=== PATIENT | female | born 1935 | race Caucasian/White ===

== ENCOUNTER 2024-11-19 06:07 | Emergency (ER) | payer MEDICARE, OTHER ==
[~2024-11-19] VITALS: Ht 170.2 cm; Wt 59.1 kg
[2024-11-19 06:57] LABS: CHLORIDE 100 mmol/L (98-107); POTASSIUM 3.9 mmol/L (3.5-5.1); SODIUM SERUM 135 mmol/L (136-145)
[2024-11-19 06:58] LABS: BASOPHILS % (AUTO) 0.7 % (0.0-2.0); EOSINOPHILS % (AUTO) 1.9 % (1.0-6.0); HEMATOCRIT 36.3 % (36-46); HEMOGLOBIN 12.3 g/dL (12.0-16.0); LYMPHOCYTES # (AUTO) 1.3 K/uL (1.0-4.8); LYMPHOCYTES % (AUTO) 12.9 % (22.0-44.0); MEAN CORPUSCULAR HEMOGLOBIN 30.6 pg (26.0-34.0); MEAN CORPUSCULAR HGB CONC 33.9 G/dL (31.0-37.0); MEAN CORPUSCULAR VOLUME 90 fL (80-100); MONOCYTES % (AUTO) 9.5 % (2.0-9.0); NEUTROPHILS # (AUTO) 7.6 K/uL (1.8-7.7); PLATELET COUNT (AUTO) 255 K/uL (150-450); RED BLOOD CELL COUNT(AUTO) 4.02 MIL/uL (4.00-5.20); RED CELL DISTRIBUTION WIDTH 14.6 % (11.5-14.5); WHITE BLOOD COUNT (AUTO) 10.2 K/uL (4.5-11.0)
[2024-11-19 07:02] LABS: ANION GAP 7 mmol/L (8-16); CALCIUM, TOTAL 9.3 mg/dL (8.8-10.5); CARBON DIOXIDE 28 mmol/L (22-29); CREATININE 0.85 mg/dL (0.60-1.30); GLOMERULAR FILTR. RATE CALC > 60 mL/min (>60); GLUCOSE,RANDOM 91 mg/dL (70-110); UREA NITROGEN, BLOOD 19 mg/dL (7-18)
[2024-11-19 07:10] LABS: ALCOHOL, BLOOD (SERUM) < 3 mg/dL (0-10)
[2024-11-19 07:19] VITALS: BP 134/76; PULSE 64; RESP 18; TEMP 97.7; O2SAT 94
[2024-11-19] MEDS ORDERED: CLON0.1T2 PO (07:39)
[2024-11-19] MEDS ORDERED: AMMO225L14 TP (07:39)
[2024-11-19] MEDS ORDERED: BISA-151 PO (07:39)
[2024-11-19] MEDS ORDERED: AMLO5TAB66 PO (07:39)
[2024-11-19 08:09] LABS: COVID AG,FIA SOURCE NASAL SWAB
[2024-11-19 08:16] LABS: APPEARANCE,URINE CLEAR (CLEAR); BILIRUBIN,URINE NEGATIVE (NEGATIVE); COLOR,URINE COLORLESS (YELLOW); GLUCOSE, URINE (UA) NEGATIVE (NEGATIVE); KETONES,URINE NEGATIVE (NEGATIVE); LEUKOCYTE ESTERASE ,URINE SMALL (NEGATIVE); NITRATE,URINE NEGATIVE (NEGATIVE); OCCULT BLOOD,URINE TRACE (NEGATIVE); PH,URINE 6.5 (5.0-8.0); PH,URINE DRUG SCREEN 6.5 (5.0-8.0); PROTEIN,URINE NEGATIVE (NEGATIVE); SPECIFIC GRAVITIY, URINE 1.006 (1.003-1.030); UROBILINOGEN,URINE <=1.0 mg/dL (<=1.0)
[2024-11-19 08:22] LABS: AMPHET/METH SCREEN,URINE NEGATIVE (NEGATIVE); BARBITURATE SCREEN, URINE NEGATIVE (NEGATIVE); BENZODIAZEPINES SCREEN,URINE NEGATIVE (NEGATIVE); CANNABINOID SCREEN,URINE NEGATIVE (NEGATIVE); COCAINE SCREEN,URINE NEGATIVE (NEGATIVE); METHADONE SCREEN, URINE NEGATIVE (NEGATIVE); OPIATE SCREEN,URINE NEGATIVE (NEGATIVE); PHENCYCLIDINE SCREEN,URINE NEGATIVE (NEGATIVE)
[2024-11-19 08:23] LABS: ALCOHOL, URINE DRUG SCREEN NEGATIVE (NEGATIVE)
[2024-11-19 08:27] LABS: SARS-COV2 (COVID) ANTIGEN,FIA Negative (Negative)
[2024-11-19 08:38] LABS: BACTERIA,URINE None Seen /HPF (None Seen); RBC,URINE 0-2 /HPF (0-2)
== END 2024-11-19 12:00 ==
LOC: EMS 06:10
DX: R45.1 Restlessness and agitation (principal); Z20.822 Contact with and (suspected) exposure to COVID-19
CPT/HCPCS: 99283; 87426; 80048; 81001; 85025; 36415; 80307; G0480

== ENCOUNTER 2024-11-20 16:02 | Inpatient (IN) | payer MEDICARE, OTHER ==
[~2024-11-20] VITALS: Ht 160 cm; Wt 58.5 kg
[~2024-11-20 16:02] MED LIST: AMLO5TAB66 PO; AMMO225L14 TP; BISA-151 PO; CLON0.1T2 PO
[2024-11-20 18:00] LABS: COVID AG,FIA SOURCE NPH
[2024-11-20 18:20] LABS: SARS-COV2 (COVID) ANTIGEN,FIA Negative (Negative)
[2024-11-20 18:27] LABS: BASOPHILS % (AUTO) 0.8 % (0.0-2.0); EOSINOPHILS % (AUTO) 1.3 % (1.0-6.0); HEMATOCRIT 35.3 % (36-46); HEMOGLOBIN 11.7 g/dL (12.0-16.0); LYMPHOCYTES # (AUTO) 0.6 K/uL (1.0-4.8); LYMPHOCYTES % (AUTO) 7.9 % (22.0-44.0); MEAN CORPUSCULAR HEMOGLOBIN 30.5 pg (26.0-34.0); MEAN CORPUSCULAR HGB CONC 33.3 G/dL (31.0-37.0); MEAN CORPUSCULAR VOLUME 92 fL (80-100); MONOCYTES # (AUTO) 0.9 K/uL (0.1-1.0); MONOCYTES % (AUTO) 11.8 % (2.0-9.0); NEUTROPHILS # (AUTO) 5.8 K/uL (1.8-7.7); NEUTROPHILS % (AUTO) 78.2 % (40.0-70.0); PLATELET COUNT (AUTO) 232 K/uL (150-450); RED BLOOD CELL COUNT(AUTO) 3.85 MIL/uL (4.00-5.20); RED CELL DISTRIBUTION WIDTH 14.5 % (11.5-14.5); WHITE BLOOD COUNT (AUTO) 7.4 K/uL (4.5-11.0)
[2024-11-20 18:36] LABS: ANION GAP 8 mmol/L (8-16); CALCIUM, TOTAL 8.8 mg/dL (8.8-10.5); CARBON DIOXIDE 27 mmol/L (22-29); CHLORIDE 101 mmol/L (98-107); CREATININE 0.93 mg/dL (0.60-1.30); GLOMERULAR FILTR. RATE CALC 57 mL/min (>60); GLUCOSE,RANDOM 89 mg/dL (70-110); SODIUM SERUM 136 mmol/L (136-145); UREA NITROGEN, BLOOD 25 mg/dL (7-18)
[2024-11-20 18:38] LABS: ALBUMIN 3.1 g/dL (3.4-5.0); BILIRUBIN,DIRECT 0.2 mg/dL (0.00-0.20); BILIRUBIN,TOTAL 0.5 mg/dL (0.1-1.0); TOTAL PROTEIN, SERUM 6.8 g/dL (6.4-8.2)
[2024-11-20 18:44] LABS: ALCOHOL, BLOOD (SERUM) < 3 mg/dL (0-10)
[2024-11-20 21:03] LABS: APPEARANCE,URINE HAZY (CLEAR); BILIRUBIN,URINE NEGATIVE (NEGATIVE); COLOR,URINE YELLOW (YELLOW); GLUCOSE, URINE (UA) NEGATIVE (NEGATIVE); KETONES,URINE TRACE mg/dL (NEGATIVE); LEUKOCYTE ESTERASE ,URINE MODERATE (NEGATIVE); NITRATE,URINE NEGATIVE (NEGATIVE); OCCULT BLOOD,URINE TRACE (NEGATIVE); PH,URINE 6.5 (5.0-8.0); PH,URINE DRUG SCREEN 6.5 (5.0-8.0); PROTEIN,URINE TRACE mg/dL (NEGATIVE); SPECIFIC GRAVITIY, URINE 1.022 (1.003-1.030); UROBILINOGEN,URINE <=1.0 mg/dL (<=1.0)
[2024-11-20 21:16] LABS: ALCOHOL, URINE DRUG SCREEN NEGATIVE (NEGATIVE); AMPHET/METH SCREEN,URINE NEGATIVE (NEGATIVE); BARBITURATE SCREEN, URINE NEGATIVE (NEGATIVE); BENZODIAZEPINES SCREEN,URINE NEGATIVE (NEGATIVE); CANNABINOID SCREEN,URINE NEGATIVE (NEGATIVE); COCAINE SCREEN,URINE NEGATIVE (NEGATIVE); METHADONE SCREEN, URINE NEGATIVE (NEGATIVE); OPIATE SCREEN,URINE NEGATIVE (NEGATIVE); PHENCYCLIDINE SCREEN,URINE NEGATIVE (NEGATIVE)
[2024-11-20 21:25] LABS: BACTERIA,URINE Moderate /HPF (None Seen); RBC,URINE 0-2 /HPF (0-2); SQUAMOUS EPITHELIAL CELL,UR Few /LPF (None Seen)
[2024-11-21] MEDS ORDERED: ESCI-8 PO (08:14)
[2024-11-21] MEDS ORDERED: CYAN500T56 PO (08:14)
[2024-11-21] MEDS: CEPHALEXIN MONOHYDRATE 500 MG CAPSULE PO ONE (13:48)
[2024-11-21] MEDS: CEPHALEXIN MONOHYDRATE 500 MG CAPSULE PO SCH (15:40)
[2024-11-21] MEDS: HALOPERIDOL 5 MG TABLET PO PRN (16:56)
[2024-11-21] MEDS: LORazepam 2 MG TABLET PO PRN (16:56)
[2024-11-21] MEDS: ZOLPIDEM TARTRATE 10 MG TABLET PO PRN (22:00)
[2024-11-22 08:15] LABS: BASOPHILS % (AUTO) 0.5 % (0.0-2.0); EOSINOPHILS % (AUTO) 0 % (1.0-6.0); HEMATOCRIT 38.3 % (36-46); LYMPHOCYTES # (AUTO) 0.6 K/uL (1.0-4.8); LYMPHOCYTES % (AUTO) 5.7 % (22.0-44.0); MEAN CORPUSCULAR HEMOGLOBIN 31.1 pg (26.0-34.0); MEAN CORPUSCULAR HGB CONC 34.1 G/dL (31.0-37.0); MEAN CORPUSCULAR VOLUME 91 fL (80-100); MONOCYTES % (AUTO) 9.7 % (2.0-9.0); NEUTROPHILS # (AUTO) 8.3 K/uL (1.8-7.7); NEUTROPHILS % (AUTO) 84.1 % (40.0-70.0); PLATELET COUNT (AUTO) 243 K/uL (150-450); RED BLOOD CELL COUNT(AUTO) 4.19 MIL/uL (4.00-5.20); RED CELL DISTRIBUTION WIDTH 14.6 % (11.5-14.5); WHITE BLOOD COUNT (AUTO) 9.8 K/uL (4.5-11.0)
[2024-11-22 08:23] LABS: ANION GAP 9 mmol/L (8-16); CALCIUM, TOTAL 8.7 mg/dL (8.8-10.5); CARBON DIOXIDE 29 mmol/L (22-29); CHLORIDE 98 mmol/L (98-107); CREATININE 0.91 mg/dL (0.60-1.30); GLOMERULAR FILTR. RATE CALC 58 mL/min (>60); GLUCOSE,RANDOM 108 mg/dL (70-110); POTASSIUM 4.1 mmol/L (3.5-5.1); SODIUM SERUM 136 mmol/L (136-145); UREA NITROGEN, BLOOD 19 mg/dL (7-18)
[2024-11-22 08:41] LABS: LACTIC ACID 2.1 mmol/L (0.4-2.0); TROPONIN I-HIGH SENSITIVITY 91 ng/L (<51)
[2024-11-22] MEDS ORDERED: LEVOFLOXACIN 750 MG/D5% WATER 150 ML IV ONE (08:45)
[2024-11-22] MEDS: *CLINICAL-GENTAMICIN DOSING CLINICAL ONE (08:52)
[2024-11-22] MEDS ORDERED: BISACODYL 10 MG RECTAL RECTAL SUPPOSITORY PR PRN (09:30)
[2024-11-22] MEDS ORDERED: ACETAMINOPHEN 325 MG TABLET PO PRN (09:30)
[2024-11-22] MEDS ORDERED: GENTAMICIN 100 MG/NACL ISO-OSM 50 ML IV ONE (10:00)
[2024-11-22] MEDS: VANCOMYCIN HCL 1 GM/D5% WATER 200 ML IV ONE (11:17)
[2024-11-22 14:06] VITALS: BP 131/92; PULSE 90; RESP 18; TEMP 97; O2SAT 98
[2024-11-22] MEDS: DEXTROSE 5%-0.45% SODIUM CHL 1,000 ML IV SCH (16:13)
[2024-11-22] MEDS: HEPARIN SODIUM,PORCINE 5,000 UNITS/ML VIAL SQ SCH (16:13)
[2024-11-22 19:25] VITALS: BP 126/81; PULSE 105; RESP 19; TEMP 97.5; O2SAT 97
[2024-11-22] MEDS ORDERED: 0.9% SODIUM CHLORIDE 5 ML NEB SOLUTION NEB PRN (22:15)
[2024-11-23] VITALS (7 sets, daily range): BP systolic 128–153; BP diastolic 73–92; PULSE 95–114; RESP 17–20; TEMP 97.7–99.2; O2SAT 93–95
[2024-11-23 07:38] LABS: ANION GAP 8 mmol/L (8-16); CALCIUM, TOTAL 8.6 mg/dL (8.8-10.5); CARBON DIOXIDE 24 mmol/L (22-29); CHLORIDE 100 mmol/L (98-107); CREATININE 0.78 mg/dL (0.60-1.30); GLOMERULAR FILTR. RATE CALC > 60 mL/min (>60); GLUCOSE,RANDOM 102 mg/dL (70-110); SODIUM SERUM 132 mmol/L (136-145); UREA NITROGEN, BLOOD 20 mg/dL (7-18)
[2024-11-23] MEDS: PANTOPRAZOLE SODIUM 40 MG/VIAL IVP SCH (08:46)
[2024-11-23] MEDS: VANCOMYCIN HCL 1 GM/D5% WATER 200 ML IV SCH (08:46)
[2024-11-23] MEDS: LORazepam 2 MG/ML VIAL IVP PRN (16:00)
[2024-11-24 05:10] VITALS: BP 126/70; PULSE 93; RESP 17; TEMP 97.9; O2SAT 94
[2024-11-24 07:23] LABS: ANION GAP 6 mmol/L (8-16); CALCIUM, TOTAL 8.3 mg/dL (8.8-10.5); CARBON DIOXIDE 28 mmol/L (22-29); CHLORIDE 99 mmol/L (98-107); CREATININE 0.71 mg/dL (0.60-1.30); GLOMERULAR FILTR. RATE CALC > 60 mL/min (>60); GLUCOSE,RANDOM 92 mg/dL (70-110); POTASSIUM 3.4 mmol/L (3.5-5.1); SODIUM SERUM 133 mmol/L (136-145); UREA NITROGEN, BLOOD 18 mg/dL (7-18)
[2024-11-24 08:15] VITALS: BP 121/65; PULSE 99; RESP 18; TEMP 98.1; O2SAT 94
[2024-11-24] MEDS ORDERED: POTASSIUM CHLORIDE 20 MEQ ER TABLET PO PRN (10:30)
[2024-11-24] MEDS: POTASSIUM CHL 10 MEQ/WATER 50 ML IV PRN (11:00)
[2024-11-24 12:00] VITALS: BP 113/70; PULSE 97; RESP 19; TEMP 98.1; O2SAT 91
[2024-11-24 12:54] LABS: TROPONIN I-HIGH SENSITIVITY 53 ng/L (<51)
[2024-11-24 15:45] VITALS: BP 134/76; PULSE 93; RESP 18; TEMP 98; O2SAT 93
[2024-11-24 20:00] VITALS: BP 138/74; PULSE 96; RESP 17; TEMP 98.5; O2SAT 94
[2024-11-24] MEDS ORDERED: SODIUM CHLORIDE 0.9% 500 ML IV ONE (22:58)
[2024-11-25] VITALS: BP 128/78; PULSE 92; RESP 18; TEMP 98.8; O2SAT 95
[2024-11-25 04:00] VITALS: BP 125/80; PULSE 95; RESP 18; TEMP 97.9; O2SAT 95
[2024-11-25 06:38] LABS: ANION GAP 8 mmol/L (8-16); CALCIUM, TOTAL 8.1 mg/dL (8.8-10.5); CARBON DIOXIDE 24 mmol/L (22-29); CHLORIDE 103 mmol/L (98-107); CREATININE 0.72 mg/dL (0.60-1.30); GLOMERULAR FILTR. RATE CALC > 60 mL/min (>60); GLUCOSE,RANDOM 87 mg/dL (70-110); POTASSIUM 4.1 mmol/L (3.5-5.1); SODIUM SERUM 135 mmol/L (136-145); UREA NITROGEN, BLOOD 15 mg/dL (7-18)
[2024-11-25 07:48] VITALS: BP 136/86; PULSE 86; RESP 18; TEMP 97.9; O2SAT 95
[2024-11-25 11:47] VITALS: BP 140/55; PULSE 90; RESP 17; TEMP 97.4; O2SAT 93
[2024-11-25 16:02] VITALS: BP 137/90; PULSE 100; RESP 18; TEMP 98.9; O2SAT 92
[2024-11-25 20:04] VITALS: BP 145/90; PULSE 101; RESP 20; TEMP 98; O2SAT 92
[2024-11-25] MEDS: VANCOMYCIN 750 MG/WATER(PEG) 150 ML IV SCH (20:17)
[2024-11-26 00:31] VITALS: BP 138/77; PULSE 107; RESP 20; TEMP 98.5; O2SAT 97
[2024-11-26 05:34] VITALS: BP 135/73; PULSE 101; RESP 18; TEMP 98.5; O2SAT 91
[2024-11-26 07:01] LABS: ANION GAP 10 mmol/L (8-16); CARBON DIOXIDE 23 mmol/L (22-29); CHLORIDE 102 mmol/L (98-107); CREATININE 0.73 mg/dL (0.60-1.30); GLOMERULAR FILTR. RATE CALC > 60 mL/min (>60); GLUCOSE,RANDOM 86 mg/dL (70-110); POTASSIUM 3.6 mmol/L (3.5-5.1); SODIUM SERUM 135 mmol/L (136-145); UREA NITROGEN, BLOOD 11 mg/dL (7-18)
[2024-11-26 07:58] VITALS: BP 133/89; PULSE 88; RESP 18; TEMP 97.5; O2SAT 92
[2024-11-26 11:07] VITALS: BP 113/75; PULSE 92; RESP 16; TEMP 98; O2SAT 91
[2024-11-26 17:13] VITALS: BP 132/83; PULSE 90; RESP 21; TEMP 97.6; O2SAT 91
[2024-11-26 20:09] VITALS: BP 122/78; PULSE 93; RESP 20; TEMP 98.4; O2SAT 90
[2024-11-27] VITALS (7 sets, daily range): BP systolic 97–158; BP diastolic 57–92; PULSE 72–112; RESP 17–21; TEMP 97–98.9; O2SAT 90–100
[2024-11-27 06:48] LABS: BASOPHILS % (AUTO) 0.5 % (0.0-2.0); EOSINOPHILS % (AUTO) 0.1 % (1.0-6.0); HEMATOCRIT 36.1 % (36-46); HEMOGLOBIN 12.3 g/dL (12.0-16.0); LYMPHOCYTES # (AUTO) 0.9 K/uL (1.0-4.8); LYMPHOCYTES % (AUTO) 12.1 % (22.0-44.0); MEAN CORPUSCULAR HEMOGLOBIN 30.5 pg (26.0-34.0); MEAN CORPUSCULAR HGB CONC 34.1 G/dL (31.0-37.0); MEAN CORPUSCULAR VOLUME 90 fL (80-100); MONOCYTES # (AUTO) 0.7 K/uL (0.1-1.0); MONOCYTES % (AUTO) 9.8 % (2.0-9.0); NEUTROPHILS # (AUTO) 5.5 K/uL (1.8-7.7); NEUTROPHILS % (AUTO) 77.5 % (40.0-70.0); PLATELET COUNT (AUTO) 197 K/uL (150-450); RED BLOOD CELL COUNT(AUTO) 4.03 MIL/uL (4.00-5.20); RED CELL DISTRIBUTION WIDTH 14.5 % (11.5-14.5); WHITE BLOOD COUNT (AUTO) 7.1 K/uL (4.5-11.0)
[2024-11-27 07:00] LABS: ANION GAP 10 mmol/L (8-16); CALCIUM, TOTAL 7.9 mg/dL (8.8-10.5); CARBON DIOXIDE 22 mmol/L (22-29); CHLORIDE 104 mmol/L (98-107); CREATININE 0.78 mg/dL (0.60-1.30); GLOMERULAR FILTR. RATE CALC > 60 mL/min (>60); GLUCOSE,RANDOM 84 mg/dL (70-110); POTASSIUM 3.9 mmol/L (3.5-5.1); SODIUM SERUM 136 mmol/L (136-145); UREA NITROGEN, BLOOD 12 mg/dL (7-18); VANCOMYCIN,RANDOM 18.8 mcg/mL (25.0-50.0)
[2024-11-27] MEDS: LORazepam 2 MG/ML VIAL IVP PRN (17:26)
[2024-11-28 03:55] VITALS: BP 146/84; PULSE 95; RESP 18; TEMP 97.6; O2SAT 97
[2024-11-28 07:55] LABS: ANION GAP 8 mmol/L (8-16); CALCIUM, TOTAL 8.3 mg/dL (8.8-10.5); CARBON DIOXIDE 23 mmol/L (22-29); CHLORIDE 106 mmol/L (98-107); GLOMERULAR FILTR. RATE CALC > 60 mL/min (>60); GLUCOSE,RANDOM 87 mg/dL (70-110); POTASSIUM 3.5 mmol/L (3.5-5.1); SODIUM SERUM 137 mmol/L (136-145); UREA NITROGEN, BLOOD 9 mg/dL (7-18)
[2024-11-28 08:11] VITALS: BP 137/79; PULSE 85; RESP 18; TEMP 97.8; O2SAT 94
[2024-11-28] MEDS: MORPHINE SULFATE 2 MG/ML SYRINGE IVP PRN (13:56)
[2024-11-28 19:54] VITALS: BP 125/66; PULSE 97; RESP 18; TEMP 98.3; O2SAT 100
== END 2024-11-28 20:41 | disposition hospice, home (50) | DRG 189 ==
LOC: EMS 16:02 → EDBEDREQTM 11-22 09:06 → EDBEDREQ 11-22 09:06 → EDBEDREQDT 11-22 09:06 → EDBEDREQSVC 11-22 09:06 → EDH 11-22 09:20 → UNDOADMIN 11-22 10:30 → EDH 11-22 13:30 → 5S 11-22 13:30 → 4E 11-27 12:15
PROVIDERS: ADMIT Internal Medicine; ATTEND Internal Medicine
DX: J96.01 Acute respiratory failure with hypoxia (principal); E43 Unspecified severe protein-calorie malnutrition; N39.0 Urinary tract infection, site not specified; I48.20 Chronic atrial fibrillation, unspecified; F20.0 Paranoid schizophrenia; F33.0 Major depressive disorder, recurrent, mild; F03.C11 Unspecified dementia, severe, with agitation; F03.C4 Unspecified dementia, severe, with anxiety; I10 Essential (primary) hypertension; Z20.822 Contact with and (suspected) exposure to COVID-19; B95.2 Enterococcus as the cause of diseases classified elsewhere; I08.3 Combined rheumatic disorders of mitral, aortic and tricuspid valves; Z79.899 Other long term (current) drug therapy; Z88.8 Allergy status to other drugs, medicaments and biological substances; Z88.1 Allergy status to other antibiotic agents; Z88.5 Allergy status to narcotic agent; Z91.013 Allergy to seafood; Z68.22 Body mass index [BMI] 22.0-22.9, adult; Z88.6 Allergy status to analgesic agent; Z91.199 Patient's noncompliance with other medical treatment and regimen due to unspecified reason; Z91.51 Personal history of suicidal behavior
CPT/HCPCS: 71045; 80048; 80076; 80202; 80307; 81001; 83605; 83880; 84132; 84484; 85025; 87077; 87081; 87086; 87186; 92507; 92526; 92610; 93005; 93306; 96365; 96367; 96372; 96374; G0378; G0480; J1580; J1644; J2060; J2270; J2470; J3370; J3480; J7040; 36415-L1; 36415-TC